=== PATIENT | male | born 1990 | race Caucasian/White ===

== ENCOUNTER 2018-01-29 17:37 | Emergency (ER) | payer BC ==
[2018-01-29] MEDS: FLUORESCEIN OPHTH 1 MG STRIP OD (18:08)
[2018-01-29] MEDS: TETRACAINE 0.5% OPHTH SOLN 4ML OD (18:08)
[2018-01-29] MEDS: NORCO, ANEXSIA 5/325MG TABLET (HYDROcodone/ACETAMINOPHEN) PO (18:25)
== END 2018-01-29 18:30 | disposition home or self-care (01) ==
LOC: M ED 17:37
DX: S05.01XA Injury of conjunctiva and corneal abrasion without foreign body, right eye, initial encounter (principal); W31.2XXA Contact with powered woodworking and forming machines, initial encounter; Y92.098 Other place in other non-institutional residence as the place of occurrence of the external cause
CPT/HCPCS: 99282